=== PATIENT | female | born 1995 | race Caucasian/White ===

== ENCOUNTER → 2020-08-03 14:42 | Outpatient (BNVA) | payer SELFPAY | PROVIDERS: Visit Provider Emergency Medicine | DX: R73.9 Hyperglycemia, unspecified (principal); M54.9 Dorsalgia, unspecified | CPT/HCPCS: 80048; 80061; 81000; 83036; 84443; 85025 ==

== ENCOUNTER → 2020-11-29 11:49 | Outpatient (BNVA) | payer OTHER, SELFPAY | PROVIDERS: Visit Provider Nurse Practitioner Family | DX: J06.9 Acute upper respiratory infection, unspecified (principal); Z20.822 Contact with and (suspected) exposure to COVID-19 | CPT/HCPCS: 87635 ==

== ENCOUNTER 2024-06-14 21:14 | Inpatient (IN) | payer BC, SELFPAY ==
[2024-06-14 21:22] VITALS: BP 116/83; PULSE 116; RESP 18; TEMP 36.7; BMI 29.0
--- NOTE | 2024-06-14 21:36 | W.ED.PSYCHS ---
Documented by User: Renan Elena DO 06/15/24 05:30 HPI - Psych General: Chief Complaint: Psychiatric Symptoms Stated Complaint: MHE Time Seen by Provider: 06/14/24 21:17 History of Present Illness: Patient brought in by EMS. Patient was found on [address] with her belongings. Patient has rambling nontangential speech. Patient will answer questions with answers however they some appear to be not appropriate. Or informational. Patient does denies she has suicidal or homicidal ideation. Per review of the chart it does appear that she sees a Juany Friend but has not seen her since 03/17/2024. Patient does appear to have diabetes and gets her medicine through [facility] [place] Related Data Home Medications ?Medication ?Instructions ?Recorded ?Confirmed albuterol sulfate 90 mcg/actuation 2 puff inhalation PRN PRN asthma 06/15/24 06/15/24 aerosol inhaler (Ventolin HFA) Allergies Allergy/AdvReac Type Severity Reaction Status Date / Time tramadol AdvReac Intermediate Makes sick Verified 06/14/24 21:25 Review of Systems General: Reports: 10 or more systems reviewed and unremarkable except in HPI and below PFSH ED PFSH: Medical History Borderline hyperglycemia Social History Smoking and tobacco/nicotine status: current every day tobacco/nicotine user Substance/Drug Use: current Female Reproductive History: Spontaneous abortions: No Physical Exam Const: COMMON NORMALS: no acute distress, average body habitus, healthy appearing, alert and well nourished HENMT: COMMON NORMALS: normocephalic, atraumatic, hearing grossly normal bilaterally, external ears normal, Normal external nose present, moist oral mucous membranes and oropharynx normal HEAD & SCALP: normocephalic and atraumatic NOSE: Normal external nose present EXTERNAL EAR: Yes external ears normal Neck/C-Spine: COMMON NORMALS: full ROM, no lymphadenopathy, supple, no meningeal signs, no JVD and Thyroid normal THYROID: Thyroid normal Chest: COMMONS NORMALS: normal inspection of the chest and normal palpation of entire chest wall Resp: COMMON NORMALS: normal respiratory effort, No retractions, No use of accessory muscles and clear to auscultation bilaterally AUSCULTATION: clear to auscultation bilaterally Cardio: COMMON NORMALS: no JVD, regular rhythm, S1 normal heart sound present, S2 normal heart sound present, No gallops present (Cardio), No clicks present (Cardio), No murmurs present (Cardio) and No rub (Cardio); negative for regular rate (Mildly tachycardic) RATE: abnormal rate (Mildly tachycardic) RHYTHM: regular rhythm HEART SOUNDS: S1 normal heart sound present and S2 normal heart sound present GI: COMMON NORMALS: Normal to inspection, nondistended, normoactive bowel sounds present, Soft to palpation, non-tender, No hepatosplenomegaly present and no masses PALPATION: Yes Soft to palpation and Yes No hepatosplenomegaly present Neuro: SENSORIUM/ORIENTATION: Yes alert MENINGEAL SIGNS: Yes no meningeal signs Course Vital Signs: Vital signs: Vital Signs Temperature 98.2 F 06/15/24 12:22 Pulse Rate 108 H 06/15/24 12:22 Respiratory Rate 18 06/15/24 14:00 Blood Pressure 119/64 06/15/24 12:22 Pulse Oximetry 98 06/15/24 12:22 Oxygen Delivery Me thod Room Air 06/15/24 12:24 [facility] - Psych Lab Data 06/15/24 00:17 06/15/24 00:[address] 06/15/24 09:28 IMPRESSION: Negative head CT. Laboratory Results WBC 8.70 10^3/uL (3.29-11.43) 06/15/24 00:17 RBC 4.60 10^6/uL (3.85-5.65) 06/15/24 00:17 Hgb 13.00 g/dL (11.27-16.99) 06/15/24 00:17 Hct 39.9 % (36-47) 06/15/24 00:17 MCV 86.7 fl (85-98) 06/15/24 00:17 MCH 28.3 pg (27-33) 06/15/24 00:17 MCHC 32.6 g/dL (30-55) 06/15/24 00:17 RDW 13.6 % (12.1-15.1) 06/15/24 00:17 Plt Count 325 10^3/cmm (157-399) 06/15/24 00:17 MPV 10.0 fL (7.4-10.4) 06/15/24 00:17 Neut % (Auto) 72.2 % 06/15/24 00:17 Lymph % (Auto) 18.7 % 06/15/24 00:17 Bibb % (Auto) 6.2 % 06/15/24 00:17 Eos % (Auto) 2.3 % 06/15/24 00:17 Baso % (Auto) 0.5 % 06/15/24 00:17 Neut # (Auto) 6.28 10^3/uL (1.8-7.7) 06/15/24 00:17 Lymph # (Auto) 1.6 10^3/uL (0.8-4.8) 06/15/24 00:17 Bibb # (Auto) 0.5 10^3/uL (0.2-0.9) 06/15/24 00:17 Eos # (Auto) 0.2 10^3/uL (0.0-0.8) 06/15/24 00:17 Baso # (Auto) 0.0 10^3/uL (0.0-0.1) 06/15/24 00:17 Nucleated RBC % (auto) 0 % 06/15/24 00:17 Nucleated RBCs # 0.0 /100WBC 06/15/24 00:17 Sodium 141 mmol/L (136-145) 06/15/24 00:17 Potassium 3.5 mmol/L (3.5-5.1) 06/15/24 00:17 Chloride 104 mmol/L (98-107) 06/15/24 00:17 Carbon Dioxide 22 mmol/L (22-29) 06/15/24 00:17 Anion Gap 18.5 (5-19) 06/15/24 00:17 BUN 8 mg/dL (6-20) 06/15/24 00:17 Creatinine 0.7 mg/dL (0.5-0.9) 06/15/24 00:17 GFR Calculation 97.6 mL/min (90-130) 06/15/24 00:17 Glucose 114 mg/dL (65-115) 06/15/24 00:17 POC Glucose 94 mg/dL (70-110) 06/15/24 08:18 Calculated Osmolality 291 mOsm/kg (285-295) 06/15/24 00:17 Calcium 10.0 mg/dL (8.5-10.5) 06/15/24 00:17 Total Bilirubin 0.8 mg/dL (0.15-1.2) 06/15/24 00:17 AST 26 U/L (0-32) 06/15/24 00:17 ALT 26 U/L (0-33) 06/15/24 00:17 Alkaline Phosphatase 114 U/L (35-105) H 06/15/24 00:17 Total Protein 7.4 g/dL (6.6-8.7) 06/15/24 00:17 Albumin 4.2 g/dL (3.5-5.2) 06/15/24 00:17 Globulin 3.2 g/dL (1.3-4.6) 06/15/24 00:17 HCG, Qual Negative (Negative) 06/15/24 08:06 Urine Color Dark yellow (Yellow) A 06/15/24 08:06 Urine Appearance Cloudy (CLEAR) A 06/15/24 08:06 Urine pH 5.5 (5-7) 06/15/24 08:06 Ur Specific [place] 1.030 (1.005-1.030) 06/15/24 08:06 Urine Protein 1+ (Negative) A 06/15/24 08:06 Urine Glucose (UA) Negative (Normal) 06/15/24 08:06 Urine Ketones 1+ (Negative) H 06/15/24 08:06 Urine Blood 3+ (Negative) A 06/15/24 08:06 Urine Nitrate Negative (Negative) 06/15/24 08:06 Urine Bilirubin Negative (Negative) 06/15/24 08:06 Urine Urobilinogen 1.0 mg/dL (Negative) 06/15/24 08:06 Ur Leukocyte Esterase Negative (Negative) 06/15/24 08:06 Urine RBC 0-2 /hpf (0-2) 06/15/24 08:06 Urine WBC 11-20 /hpf (0-5) H 06/15/24 08:06 Ur Squamous Epith Cells 6-10 /hpf (0-5) 06/15/24 08:06 Amorphous Sediment Not Reportable 06/15/24 08:06 Urine Bacteria 2+ /hpf (NONE) H 06/15/24 08:06 Hyaline Casts 4.11 /lpf 02/18/25 08:06 Salicylates < 0.3 mg/dL (3-10) L 06/15/24 00:17 Urine Opiates Screen Negative ng/mL (Negative) 06/15/24 08:06 Acetaminophen < 5.0 ug/mL (10-30) L 06/15/24 00:17 Ur Barbiturates Screen Negative ng/mL (Negative) 06/15/24 08:06 Ur Phencyclidine Scrn Negative ng/mL (Negative) 06/15/24 08:06 Ur Amphetamines Screen Positive ng/mL (Negative) H 06/15/24 08:06 U Benzodiazepines Scrn Negative ng/mL (Negative) 06/15/24 08:06 Urine Cocaine Screen Negative ng/mL (Negative) 06/15/24 08:06 U Marijuana (THC) Screen Positive ng/mL (Negative) H 06/15/24 08:06 Ethyl Alcohol < 10 mg/dL (0-10) 06/15/24 00:17 Discharge Plan Discharge Patient Disposition: Admitted As Inpatient Admit Provider: Rashaun Pizano Clinical Impression: Acute psychosis, Amphetamine abuse Condition: Stable Coding Level of Care Code ED Industrial Mechanic for Chg Fwd Documented by User: Momo Camarena DO 06/15/24 17:23 HPI - Psych General: Chief Complaint: Psychiatric Symptoms Stated Complaint: MHE Time Seen by Provider: 06/14/24 21:17 Related Data Home Medications ?Medication ?Instructions ?Recorded ?Confirmed albuterol sulfate 90 mcg/actuation 2 puff inhalation PRN PRN asthma 06/15/24 06/15/24 aerosol inhaler (Ventolin HFA) Allergies Allergy/AdvReac Type Severity Reaction Status Date / Time tramadol AdvReac Intermediate Makes sick Verified 06/14/24 21:25 [facility] ED PFSH: Medical History Borderline hyperglycemia Social History Smoking and tobacco/nicotine status: current every day tobacco/nicotine user Substance/Drug Use: current Course Vital Signs: Vital signs: Vital Signs Temperature 98.2 F 06/15/24 12:22 Pulse Rate 108 H 06/15/24 12:22 Respiratory Rate 18 06/15/24 14:00 Blood Pressure 119/64 06/15/24 12:22 Pulse Oximetry 98 06/15/24 12:22 Oxygen Delivery Me thod Room Air 06/15/24 12:24 MDM - Psych Medical Decision Making Care assumed at change of shift monitored patient for a while she appeared to be under the influence which is confirmed by her urine drug screen however even after 13 hours she is still acutely psychotic. Placed patient on 96-hour hold discussed Dr. simmons orders written Lab Data 06/15/24 00:17 06/15/24 00:[address] 06/15/24 09:28 IMPRESSION: Negative head CT. Laboratory Results WBC 8.70 10^3/uL (3.29-11.43) 06/15/24 00:17 RBC 4.60 10^6/uL (3.85-5.65) 06/15/24 00:17 Hgb 13.00 g/dL (11.27-16.99) 06/15/24 00:17 Hct 39.9 % (36-47) 06/15/24 00:17 MCV 86.7 fl (85-98) 06/15/24 00:17 MCH 28.3 pg (27-33) 06/15/24 00:17 MCHC 32.6 g/dL (30-55) 06/15/24 00:17 RDW 13.6 % (12.1-15.1) 06/15/24 00:17 Plt Count 325 10^3/cmm (157-399) 06/15/24 00:17 MPV 10.0 fL (7.4-10.4) 06/15/24 00:17 Neut % (Auto) 72.2 % 06/15/24 00:17 Lymph % (Auto) 18.7 % 06/15/24 00:17 Bibb % (Auto) 6.2 % 06/15/24 00:17 Eos % (Auto) 2.3 % 06/15/24 00:17 Baso % (Auto) 0.5 % 06/15/24 00:17 Neut # (Auto) 6.28 10^3/uL (1.8-7.7) 06/15/24 00:17 Lymph # (Auto) 1.6 10^3/uL (0.8-4.8) 06/15/24 00:17 Bibb # (Auto) 0.5 10^3/uL (0.2-0.9) 06/15/24 00:17 Eos # (Auto) 0.2 10^3/uL (0.0-0.8) 06/15/24 00:17 Baso # (Auto) 0.0 10^3/uL (0.0-0.1) 06/15/24 00:17 Nucleated RBC % (auto) 0 % 06/15/24 00:17 Nucleated RBCs # 0.0 /100WBC 06/15/24 00:17 Sodium 141 mmol/L (136-145) 06/15/24 00:17 Potassium 3.5 mmol/L (3.5-5.1) 06/15/24 00:17 Chloride 104 mmol/L (98-107) 06/15/24 00:17 Carbon Dioxide 22 mmol/L (22-29) 06/15/24 00:17 Anion Gap 18.5 (5-19) 06/15/24 00:17 BUN 8 mg/dL (6-20) 06/15/24 00:17 Creatinine 0.7 mg/dL (0.5-0.9) 06/15/24 00:17 GFR Calculation 97.6 mL/min (90-130) 06/15/24 00:17 Glucose 114 mg/dL (65-115) 06/15/24 00:17 POC Glucose 94 mg/dL (70-110) 06/15/24 08:18 Calculated Osmolality 291 mOsm/kg (285-295) 06/15/24 00:17 Calcium 10.0 mg/dL (8.5-10.5) 06/15/24 00:17 Total Bilirubin 0.8 mg/dL (0.15-1.2) 06/15/24 00:17 AST 26 U/L (0-32) 06/15/24 00:17 ALT 26 U/L (0-33) 06/15/24 00:17 Alkaline Phosphatase 114 U/L (35-105) H 06/15/24 00:17 Total Protein 7.4 g/dL (6.6-8.7) 06/15/24 00:17 Albumin 4.2 g/dL (3.5-5.2) 06/15/24 00:17 Globulin 3.2 g/dL (1.3-4.6) 06/15/24 00:17 HCG, Qual Negative (Negative) 06/15/24 08:06 Urine Color Dark yellow (Yellow) A 06/15/24 08:06 Urine Appearance Cloudy (CLEAR) A 06/15/24 08:06 Urine pH 5.5 (5-7) 06/15/24 08:06 Ur Specific Lincoln 1.030 (1.005-1.030) 06/15/24 08:06 Urine Protein 1+ (Negative) A 06/15/24 08:06 Urine Glucose (UA) Negative (Normal) 06/15/24 08:06 Urine Ketones 1+ (Negative) H 06/15/24 08:06 Urine Blood 3+ (Negative) A 06/15/24 08:06 Urine Nitrate Negative (Negative) 06/15/24 08:06 Urine Bilirubin Negative (Negative) 06/15/24 08:06 Urine Urobilinogen 1.0 mg/dL (Negative) 06/15/24 08:06 Ur Leukocyte Esterase Negative (Negative) 06/15/24 08:06 Urine RBC 0-2 /hpf (0-2) 06/15/24 08:06 Urine WBC 11-20 /hpf (0-5) H 06/15/24 08:06 Ur Squamous Epith Cells 6-10 /hpf (0-5) 06/15/24 08:06 Amorphous Sediment Not Reportable 06/15/24 08:06 Urine Bacteria 2+ /hpf (NONE) H 06/15/24 08:06 Hyaline Casts 4.11 /lpf 06/15/24 08:06 Salicylates < 0.3 mg/dL (3-10) L 06/15/24 00:17 Urine Opiates Screen Negative ng/mL (Negative) 06/15/24 08:06 Acetaminophen < 5.0 ug/mL (10-30) L 06/15/24 00:17 Ur Barbiturates Screen Negative ng/mL (Negative) 06/15/24 08:06 Ur Phencyclidine Scrn Negative ng/mL (Negative) 06/15/24 08:06 Ur Amphetamines Screen Positive ng/mL (Negative) H 06/15/24 08:06 U Benzodiazepines Scrn Negative ng/mL (Negative) 06/15/24 08:06 Urine Cocaine Screen Negative ng/mL (Negative) 06/15/24 08:06 U Marijuana (THC) Screen Positive ng/mL (Negative) H 06/15/24 08:06 Ethyl Alcohol < 10 mg/dL (0-10) 06/15/24 00:17 All radiology interpretation(s) finalized by discharge Discharge Plan Discharge Patient Disposition: Admitted As Inpatient Admit Provider: Rashaun Pizano Clinical Impression: Acute psychosis, Amphetamine abuse Condition: Stable Coding Level of Care Code ED Industrial Mechanic for Kathrine Hernandez
--- NOTE | 2024-06-14 23:01 | PC.NURSE ---
attempted to call sister in chart 2 times, no answer
[2024-06-15 00:26] LABS: Basophils % 0.5 %; Eosinophils # 0.2 10^3/uL (0.0-0.8); Eosinophils % 2.3 %; Hematocrit 39.9 % (36-47); Lymphocytes # 1.6 10^3/uL (0.8-4.8); Lymphocytes % 18.7 %; Mean Corpuscular HGB Conc 32.6 g/dL (30-55); Mean Corpuscular Hemoglobin 28.3 pg (27-33); Mean Corpuscular Volume 86.7 fl (85-98); Monocytes # 0.5 10^3/uL (0.2-0.9); Monocytes % 6.2 %; Neutrophils # 6.28 10^3/uL (1.8-7.7); Neutrophils % 72.2 %; Nucleated Red Blood Cells % 0 %; Platelet Count 325 10^3/cmm (157-399); Red Cell Distribution Width 13.6 % (12.1-15.1)
[2024-06-15 00:48] LABS: Alanine Aminotransferase 26 U/L (0-33); Albumin Level 4.2 g/dL (3.5-5.2); Alkaline Phosphatase 114 U/L (35-105); Anion Gap 18.5 (5-19); Aspartate Amino Transferase 26 U/L (0-32); Blood Urea Nitrogen 8 mg/dL (6-20); Carbon Dioxide 22 mmol/L (22-29); Chloride 104 mmol/L (98-107); Globulin 3.2 g/dL (1.3-4.6); Glomerular Filtration Rate 97.6 mL/min (90-130); Glucose 114 mg/dL (65-115); Osmolality Calculated 291 mOsm/kg (285-295); Potassium 3.5 mmol/L (3.5-5.1); Sodium 141 mmol/L (136-145); Total Bilirubin 0.8 mg/dL (0.15-1.2); Total Protein 7.4 g/dL (6.6-8.7)
[2024-06-15 00:55] LABS: Acetaminophen < 5.0 ug/mL (10-30); Alcohol Level < 10 mg/dL (0-10); Salicylate < 0.3 mg/dL (3-10)
[2024-06-15 04:36] VITALS: BP 148/73; PULSE 90; RESP 18; O2SAT 98
--- NOTE | 2024-06-15 08:21 | PC.NURSE ---
PT AWAKE AT THIS TIME. PT WAS ABLE TO AMBULATE TO THE BATHROOM AND GIVE A URINE SAMPLE. THIS NURSE WENT INTO PT ROOM TO CHECK A BLOOD SUGAR. THIS NURSE ASKED PT IF SHE KNEW WHY SHE WAS AT THE HOSPITAL. PT STATED BECAUSE I'M A BAD BITCH. THIS NURSE EDUCATED PT ON THE PROCEDURE OF CHECKING BLOOD SUGAR. PT STATED OKAY. THIS IS WHERE MY LIVER TEST IS. NOW YOU ARE GOING TO CHECK. PT DID NOT COMPLETE SENTENCE. PT ASKED THIS NURSE DO YOU KNOW WHEN I COULD BE TAKEN TO THE HOSPITAL? THEY TOLD ME LAST NIGHT THIS WAS JUST A PLACE TO GO AND SIT. I NEED TO TELL THEM WHAT I NEED. THIS NURSE INFORMED PT THAT SHE WAS CURRENTLY IN THE ER AND THAT IF SHE HAD ANY QUESTIONS THIS NURSE WOULD BE THE ONE TAKING CARE OF HER. PT STATED I'M THE NURSE TAKING CARE OF ME. PT THEN PROCEEDED TO TAKE A BITE OUT OF PLASTIC TAG FROM THE GREEN PAPER SCRUBS. THIS NURSE ASKED PT TO NOT EAT THE PLASTIC TAG OUT OF THE SCRUBS. PT STATED I'M NOT EATING IT. PT THEN PROCEEDED TO HIDE PLASTIC TAG UNDER GREEN SCRUBS. PHYSICIAN NOTIFIED.
[2024-06-15 08:22] LABS: Glucose Point of Care 94 mg/dL (70-110)
[2024-06-15 08:48] LABS: Amphetamines Screen Urine Positive (Negative); Barbiturates Screen Urine Negative (Negative); Benzodiazepines Screen Urine Negative (Negative); Cocaine Screen Urine Negative (Negative); Opiate Screen Urine Negative (Negative); PCP Screen Urine Negative (Negative); THC Screen Urine Positive (Negative)
[2024-06-15 08:49] LABS: HCG Qualitative Urine. Negative (Negative)
--- NOTE | 2024-06-15 09:28 | CT_ITS ---
WS: [id number] CT HEAD NONCONTRAST HISTORY: Altered mental status TECHNIQUE: Contiguous axial imaging performed through the brain. Bone and soft tissue windows. Sagittal and coronal reformats reviewed. All CT scans at [facility] use at least one of these dose optimization techniques: automated exposure control; mA and/or kV adjustment per patient size (includes targeted exams where dose is matched to clinical indication); or iterative reconstruction. DLP: 2245.47 mGy.cm COMPARISON: None available. Motion artifact due to patient's inability to cooperate. No acute intracranial hemorrhage, midline shift or mass effect. No atrophy or prior infarcts or herniation. Ventricles: Normal size with no hydrocephalus. Paranasal sinuses: As visualized are clear. Mastoid air cells: Well pneumatized. Calvarium and scalp: Skull is intact with no soft tissue edema or swelling. CT/CT head wo con* [id number] IMPRESSION: Negative head CT.
[2024-06-15 09:29] LABS: Bilirubin Urine Negative (Negative); Blood Urine 3+ (Negative); Glucose Urine UA Negative (Normal); Ketones Urine 1+ (Negative); Leukocyte Esterase Urine Negative (Negative); Nitrate Urine Negative (Negative); Protein Urine 1+ (Negative); Urine Appearance Cloudy (CLEAR); Urine Color Dark Yellow (Yellow); pH Urine 5.5 (5-7)
[2024-06-15 09:33] LABS: Add Urine Microscopic? YES; Bacteria Urine 2+ /hpf; Hyaline Casts Urine 4.11 /lpf; RBC Urine 0-2 /hpf (0-2)
[2024-06-15 09:42] LABS: Add Urine Culture? Yes
--- NOTE | 2024-06-15 10:23 | PC.NURSE ---
PT RESTING IN BED QUIETLY AT THIS TIME WITH EVEN RESPIRATIONS. HEAD CT ORDERED. THIS NURSE AND CLAY PRESS OPERATOR EDUCATED PT ON THE NEED FOR THE ORDERED SCAN. PT STATED I DON'T NEED IT. THEY USUALLY DO IT IN THE ROOM. YOU DON'T EVEN KNOW WHY I AM HERE. DID YOU EVEN GET LAB WORK? THIS NURSE EDUCATED PT THAT LAB WORK WAS OBTAINED AND A URINE SAMPLE WAS OBTAINED AND THE HEAD CT BEING IMPORTANT TO MEDICALLY CLEAR PT TO GO HOME. PT STATES WHY DO YOU THINK I AM HERE? THIS NURSE EDUCATED PT ON THE PT BEING ALTERED LAST NIGHT. PT STATES WHEN DID THEY GET MY BLOOD? WHILE I WAS SLEEPING? THIS NURSE INFORMED PT THAT THE ANIMAL RIDE MANAGER STAFF OBTAINED BLOOD WORK SO THIS NURSE WAS UNAWARE OF PT MENTATION WHEN THE BLOOD WORK WAS OBTAINED. PT STILL REFUSING CT SCAN. PROVIDER NOTIFIED.
--- NOTE | 2024-06-15 10:47 | PC.NURSE ---
PT REQUESTED NEW SET OF GREEN SCRUBS, PAD, LOTION, HAIR BRUSH AND FRESH ICE WATER. ALL REQUESTED ITEMS GIVEN TO PT. PT DENIED ANY OTHER VERBALIZED NEEDS AT THIS TIME. PSA OUTSIDE ROOM.
[2024-06-15 11:18] VITALS: BP 121/83; PULSE 106; O2SAT 97
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
--- NOTE | 2024-06-15 12:07 | PC.NURSE ---
THIS NURSE WENT IN TO PT ROOM TO OBTAIN VITAL SIGNS PRIOR TO TRANSFER TO NPU. THE BLOOD PRESSURE CUFF STARTED TO PUMP UP, PT STATES IF THIS THING MAKES ME FAT, ITS ON YOU. THIS NURSE EDUCATED PT ON HOW THE BLOOD PRESSURE CUFF WILL PUMP UP AND WILL LET AIR OUT. PT STATES WELL, IT IS MAKING MY ARM FAT. THIS NURSE VERBALIZED UNDERSTANDING AND REASSURED PT THAT IT WOULD SLOWLY LET AIR OUT. PT THEN TURNED TO THE CORNER OF THE ROOM AND MUMBLED WORDS THAT THIS NURSE WAS UNABLE TO COMPREHEND. PT APPEARED TO BE SPEAKING TO SOMETHING THAT WAS NOT THERE. VITALS WERE OBTAINED. PT WAS TRANSFERRED TO INPATIENT NPU WITH AND EMILY STINSON AT BEDSIDE.
[2024-06-15 12:14] VITALS: BP 131/73; PULSE 84; O2SAT 98
[2024-06-15 12:22] VITALS: BP 119/64; PULSE 108; RESP 18; TEMP 36.8; O2SAT 98
[2024-06-15 14:00] VITALS: RESP 18
--- NOTE | 2024-06-15 15:12 | PC.NURSE ---
Pt refused vital signs. RR 18
[2024-06-15] MEDS: hyDROXYzine 25 mg Capsule 50 MG PO (16:36)
[2024-06-15 20:04] VITALS: BP 93/55; PULSE 86; RESP 16; O2SAT 97
[2024-06-16 06:00] VITALS: BP 117/76; PULSE 89; RESP 16; TEMP 37.1; O2SAT 97
[2024-06-16] MEDS: nicotine 4 mg lozenge MUCOUS MEM (09:19)
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
[2024-06-16 14:00] VITALS: BP 121/67; PULSE 94; RESP 18; TEMP 36.7; O2SAT 92
[2024-06-16 20:07] VITALS: BP 103/55; PULSE 87; RESP 16; TEMP 37; O2SAT 98
[2024-06-17 06:00] VITALS: BP 121/68; PULSE 97; RESP 16; TEMP 37; O2SAT 99
[2024-06-17] MEDS: penicillin v potassium 250 mg Tablet 500 MG PO ×3 (10:43→19:41)
[2024-06-17] MEDS: paliperidone ER 3 mg Tablet PO (10:44)
--- NOTE | 2024-06-17 13:01 | W.PM.NPUPNS ---
Subjective NPU Subjective: 29-year-old white female admitted with acute psychosis positive for amphetamine use. Patient continued to appear lethargic. She had periods of increased irritability but did not require any as needed medications. She had continued to appear confused about her whereabouts but stated that she wanted to go home. The patient had reported that she had felt that others around her were spying on her and trying to keep her here in the hospital. The patient had appeared to require some significant prompting for completion of activities of daily living and did not brush her teeth or shower. She had remained confused and was unable to again provide any clear history regarding how she had come to be here. Mental Status Exam MSE Comments: Patient is a overweight white female who appeared older than her stated age with poor dentition and fleeting eye contact who appeared somewhat guarded on interview. She was a poor historian. She was alert and oriented to person only unable to provide her current whereabouts or time. Her speech was normal in volume, diminished in rate and decreased in spontaneity. Her hygiene was poor. There was no evidence of any abnormal involuntary motor movements, tics, or tremors appreciated. Her thought process was nonlinear and rambling. Her thought content showed no evidence of homicidal or suicidal ideation. There were significant bizarre thoughts noted there was clear evidence of delusions and active ideas of reference. She did appear to be responding to internal stimul. Her mood was described as fine. Her affect appeared odd and subdued. Her insight is impaired. Her judgment is poor. Her impulse control appeared poor. Her recent memory appeared limited at this time. Her remote memory appeared impaired as well on testing. Vitals/I&O/Wt Last Vital Signs Temp 98.6 F 06/17/24 06:00 Pulse 97 06/17/24 06:00 Resp 16 06/17/24 06:00 BP 121/68 06/17/24 06:00 Pulse Ox 99 06/17/24 06:00 O2 Del Method Room Air 06/17/24 06:00 Data NPU 06/15/24 00:17 06/15/24 00:17 Micro: Microbiology 06/15/24 08:06 Urine Culture - Final Urine,Clean Catch Strep agalactiae - (group b) Microbiology 06/15/24 08:06 Urine,Clean Catch Urine Culture - Final Strep agalactiae - (group b) A&P Assessment and plan (1) Acute psychosis: (2) Post-traumatic stress disorder, chronic: (3) Amphetamine abuse: Plan 29-year-old female with a past history of complex PTSD admitted involuntarily with disorganized thinking and behavior with active psychosis currently currently remaining confused but agreeable to considering medications at this time. #1.? Engage patient in individual milieu and group therapy. #2?? Recommend sober living treatment at the highest level of care to which the patient is willing to commit #3??? CIWA for alcohol withdrawal #4?? TO-15 minute checks? #5?? Will attempt to gather collateral information, increase invega to 6mg daily. Patient likely needs continued stay here. PDMP PDMP Reviewed: Not Reviewed Attestations NPU Medical Necessity Statement*: Inpatient hospitalization is medically necessary and deemed to ?be ?the clinically appropriate intervention ?at this time.? We will monitor/initiate medications and make changes as indicated.? The patient?s likely length of stay 5-7 days. Coding Level of Care Code Acute Code for [facility] Fwd Diagnoses Acute psychosis F23 Post-traumatic stress disorder, chronic F43.12 Amphetamine abuse F15.10
[2024-06-17 14:00] VITALS: BP 107/78; PULSE 97; RESP 18; TEMP 37.1; O2SAT 100
[2024-06-17 19:41] VITALS: BP 107/61; PULSE 89; RESP 16; TEMP 37; O2SAT 98
[2024-06-17] MEDS: nicotine 4 mg lozenge MUCOUS MEM (19:41)
[2024-06-17] MEDS: trazodone 50 mg Tablet PO (19:42)
[2024-06-17] MEDS: hyDROXYzine 25 mg Capsule 50 MG PO (19:42)
--- NOTE | 2024-06-17 22:06 | PC.NURSE ---
AT NURSES STATION, IS UPSET DUE TO HAVING TO FOOD AND BEVERAGE SERVICE MANAGER THIS FUCKING LINE, I'M GOING BACK TO BED. PT WAS EDUCATED AND REDIRECTED THAT SHE NEEDED TO STAY SO SHE COULD TAKE HER ANTIBIOTIC AND MEDICATIONS FOR ANXIETY AND SLEEP THAT SHE REQUESTED. PT CONTINUED TO YOEL IRRITABLE BUT DID WAIT. DENIES SI/HI AND AVH AT THIS TIME. RATES ANXIETY 5/10 AND DEPRESSION 2/10. PT IS OBSERVED ISOLATING AND WITHDRAWN TO ROOM. VISTARIL 50 MG WAS GIVEN ORDERED FOR ANXIETY AND TRAZODONE 50 MG FOR SLEEP. SUPPORT VOICED.
[2024-06-18] MEDS: penicillin v potassium 250 mg Tablet 500 MG PO ×4 (03:15→19:59)
--- NOTE | 2024-06-18 04:03 | PC.NURSE ---
PT WAS GIVEN VISTARIL 50 MG FOR REPORTS OF INCREASED ANXIETY AND TRAZODONE 50 MG FOR SLEEP. MEDICATIONS DEEMED EFFECTIVE. PT HAS BEEN RESTING IN BED SINCE APPROXIMATELY 1999 LAST NIGHT.
[2024-06-18 06:00] VITALS: BP 109/63; PULSE 84; RESP 17; TEMP 36.6; O2SAT 98
[2024-06-18] MEDS: paliperidone ER 6 mg Tablet PO (09:56)
[2024-06-18 14:00] VITALS: BP 113/73; PULSE 103; RESP 18; TEMP 37; O2SAT 98
[2024-06-18] MEDS: nicotine 4 mg lozenge MUCOUS MEM ×2 (16:51→20:00)
[2024-06-18 19:00] LABS: Glucose Point of Care 134 mg/dL (70-110)
--- NOTE | 2024-06-18 19:26 | P.NPUPN_ITS ---
Subjective NPU 2 Subjective: Patient presented today reporting that she is doing okay. She seemed to be confused about most things but did identify that she is on a 96-hour hold and felt that her time should be up relatively soon. We discussed with the weekends not being counted that her hold was technically up on Friday however our plan about discharge centered on her being well enough and that her psychosis will have resolved. She reported that she needed to get home but then made some strange comment about staying in the back of her vehicle. We discussed the importance of her being well enough to take care of any children that she might have responsibility for. We discussed her clear psychotic presentation remaining. We discussed that if the medication was not effective in resolving her psychosis that there was a reasonable chance that she would not be discharged on Friday at the end of the hold and that a 21-day hold extension was filed. She denied any side effects to the medication. Mental Status Exam 2 MSE Comments: This is an overweight versus obese white female in hospital scrubs who appeared older than her stated age with poor dentition and fleeting eye contact. No abnormal movements except for psychomotor agitation. Somewhat cooperative with exam and mild to moderate distress. Speech was decreased rate but mostly normal volume. Mood described as okay, affect subdued and odd. Her thought process was nonlinear and rambling she continued to make odd references and say things that made no sense. Her thought content showed no evidence of homicidal or suicidal ideation. There were significant bizarre thoughts noted there was clear evidence of delusions and active ideas of reference. She did appear to be responding to internal stimuli. Attention and concentration was impaired and memory was unreliable but no more formally tested. Insight, judgment and impulse control were all impaired her recent memory appeared limited at this time. Vitals/I&O/Wt Last Vital Signs Temp 98.6 F 06/18/24 14:00 Pulse 103 H 06/18/24 14:00 Resp 18 06/18/24 14:00 BP 113/73 06/18/24 14:00 Pulse Ox 98 06/18/24 14:00 O2 Del Method Room Air 06/18/24 06:00 Data NPU 06/15/24 00:17 06/15/24 00:17 A&P Assessment and plan (1) Acute psychosis: (2) Post-traumatic stress disorder, chronic: (3) Amphetamine abuse: Plan 29-year-old female with a past history of complex PTSD admitted involuntarily with disorganized thinking and behavior with active psychosis currently currently remaining confused but agreeable to considering medications at this time. 1.? Engage patient in individual milieu and group therapy. 2.? Recommend sober living treatment at the highest level of care to which the patient is willing to commit 3.??CIWA for alcohol withdrawal 4. TO-15 minute checks? 5. Will attempt to gather collateral information, increases invega to 6mg daily. 6. 21-day hold paperwork filed PDMP PDMP Reviewed: Not Reviewed Attestations NPU 2 Medical Necessity Statement*: Inpatient hospitalization is medically necessary and the clinically appropriate intervention ?at this time.? We will monitor/initiate medications and make changes as indicated.? The patient?s likely length of stay 5-7 days. Coding Level of Care Code Acute Code for Chg Fwd Diagnoses Acute psychosis F23 Post-traumatic stress disorder, chronic F43.12 Amphetamine abuse F15.10
[2024-06-18] MEDS: acetaminophen 325 mg Tablet 650 MG PO (19:59)
[2024-06-18 20:02] VITALS: BP 108/67; PULSE 91; RESP 16; TEMP 36.6; O2SAT 99
[2024-06-19] MEDS: penicillin v potassium 250 mg Tablet 500 MG PO ×4 (03:22→21:00)
[2024-06-19 06:00] VITALS: BP 101/58; PULSE 94; RESP 16; O2SAT 98
[2024-06-19] MEDS: paliperidone ER 6 mg Tablet PO (09:10)
[2024-06-19] MEDS: nicotine 4 mg lozenge MUCOUS MEM (09:10)
[2024-06-19] MEDS: hyDROXYzine 25 mg Capsule 50 MG PO (09:10)
--- NOTE | 2024-06-19 09:16 | PC.NURSE ---
DENIES PAIN. DENIES SI/HI AND AVH AT THIS TIME. EVASIVE WITH ASSESSMENT. AFFECT IS FLAT AND GUARDED WITH STAFF. RATES ANXIETY 5/10, VISTARIL 50 MG GIVEN ORDERED FOR ANXIEY. RATES DEPRESSION 0/10. ISOLATES AND WITHDRAWN TO ROOM. WHEN WAITING AT THE NURSES STATION FOR MEDICATIONS PT COMES TO THE WINDOW BEHIND OTHER PTS AND STARTS COUNTING 1,2,3,4, THEN PLOPS BODY INTO THE FLOOR AGAINST THE WALL IN A SITTING POSITION. PT THEN DARTS UP AND COMES AND TAKES MEDICATION. SUPPORT VOICED.
--- NOTE | 2024-06-19 09:47 | P.NPUPN_ITS ---
Subjective NPU 2 Subjective: Patient presented today reporting that her significant other was ready to pick her up. She continued to have odd and bizarre thought processes per staff reports and direct observation. We discussed the fact that we have filed for 21-day hold and the possibility of discharge at the end of her hold on Friday was hinging upon whether she shows continued improvement on the Invega. She reports that the Invega does make her tired and we discussed the possibility of switching it to bedtime. She denied any other side effects to the medication. Mental Status Exam 2 MSE Comments: This is an overweight versus obese white female in hospital scrubs who appeared older than her stated age with poor dentition and fleeting eye contact. No abnormal movements except for psychomotor agitation. Somewhat cooperative with exam and mild to moderate distress. Speech was decreased rate but mostly normal volume. Mood described as okay, affect subdued and odd. Her thought process was nonlinear and rambling she continued to make odd references and say things that made no sense. Her thought content showed no evidence of homicidal or suicidal ideation. There were significant bizarre thoughts noted there was clear evidence of delusions and active ideas of reference. She did appear to be responding to internal stimuli. Attention and concentration was impaired and memory was unreliable but no more formally tested. Insight, judgment and impulse control were all impaired her recent memory appeared limited at this time. Vitals/I&O/Wt Last Vital Signs Temp 97.9 F 06/18/24 20:02 Pulse 94 06/19/24 06:00 Resp 16 06/19/24 06:00 BP 101/58 06/19/24 06:00 Pulse Ox 98 06/19/24 06:00 O2 Del Method Room Air 06/18/24 06:00 Data NPU 06/15/24 00:17 06/15/24 00:17 A&P Assessment and plan (1) Acute psychosis: (2) Post-traumatic stress disorder, chronic: (3) Amphetamine abuse: Plan 29-year-old female with a past history of complex PTSD admitted involuntarily with disorganized thinking and behavior with active psychosis currently currently remaining confused but agreeable to considering medications at this time. 1.? Engage patient in individual milieu and group therapy. 2.? Recommend sober living treatment at the highest level of care to which the patient is willing to commit 3.??CIWA for alcohol withdrawal 4. TO-15 minute checks? 5. Will attempt to gather collateral information, increases invega to 6mg daily. 6. 21-day hold paperwork filed PDMP PDMP Reviewed: Not Reviewed Attestations NPU 2 Medical Necessity Statement*: Inpatient hospitalization is medically necessary and the clinically appropriate intervention ?at this time.? We will monitor/initiate medications and make changes as indicated.? The patient?s likely length of stay 4-6 days. Coding Level of Care Code Acute Code for Chg Fwd Diagnoses Acute psychosis F23 Post-traumatic stress disorder, chronic F43.12 Amphetamine abuse F15.10
[2024-06-19 14:00] VITALS: BP 119/70; PULSE 112; RESP 17; TEMP 36.8; O2SAT 98
[2024-06-19 20:46] VITALS: BP 104/61; PULSE 106; RESP 16; TEMP 36.8; O2SAT 97
[2024-06-20] MEDS: penicillin v potassium 250 mg Tablet 500 MG PO (01:52)
[2024-06-20 06:00] VITALS: BP 109/64; PULSE 90; RESP 16; O2SAT 98
[2024-06-20] MEDS: paliperidone ER 6 mg Tablet PO (09:01)
--- NOTE | 2024-06-20 11:28 | P.NPUPN_ITS ---
Subjective NPU 2 Subjective: Patient presented today reporting that she is doing okay. She once again talked about discharging but was being bizarre in her communication per staff reports and direct observation reporting that part of the reason why she is here is because she has a UTI that twice she has the symptoms that she has as well as the fact that she is having the mental health problems she is having because she does not have her glasses. She reported that if she had her glasses she would obviously be doing better. We tried to discuss how vision and symptoms of psychosis have anything to do with 1 another but she was resistant to considering that she has some psychosis going on. We discussed the fact that we filed for 21-day hold and we will identify tomorrow whether we will discharge her or await the hearing. She reports that she is sleepy from the Invega but we agreed to move with the bedtime which she was okay with. Mental Status Exam 2 MSE Comments: This is an overweight versus obese white female in hospital scrubs who appeared older than her stated age with poor dentition and fleeting eye contact. No abnormal movements except for psychomotor agitation. Somewhat cooperative with exam and mild to moderate distress. Speech was decreased rate but mostly normal volume. Mood described as okay, affect subdued and odd. Her thought process was nonlinear and rambling she continued to make odd references and say things that made no sense. Her thought content showed no evidence of homicidal or suicidal ideation. There were significant bizarre thoughts noted there was clear evidence of delusions and active ideas of reference. She did appear to be responding to internal stimuli. Attention and concentration was impaired and memory was unreliable but no more formally tested. Insight, judgment and impulse control were all impaired her recent memory appeared limited at this time. Vitals/I&O/Wt Last Vital Signs Temp 98.3 F 06/19/24 20:46 Pulse 90 06/20/24 06:00 Resp 16 06/20/24 06:00 BP 109/64 06/20/24 06:00 Pulse Ox 98 06/20/24 06:00 O2 Del Method Room Air 06/18/24 06:00 Weight last 48 hrs Weight 82.055 kg Data NPU 06/15/24 00:17 06/15/24 00:17 A&P Assessment and plan (1) Acute psychosis: (2) Post-traumatic stress disorder, chronic: (3) Amphetamine abuse: Plan 29-year-old female with a past history of complex PTSD admitted involuntarily with disorganized thinking and behavior with active psychosis currently currently remaining confused but agreeable to considering medications at this time. 1.? Engage patient in individual milieu and group therapy. 2.? Recommend sober living treatment at the highest level of care to which the patient is willing to commit 3.??CIWA for alcohol withdrawal 4. TO-15 minute checks? 5. Will attempt to gather collateral information, increased invega to 6mg daily. Switch Invega to nightly. 6. 21-day hold paperwork filed PDMP PDMP Reviewed: Not Reviewed Attestations NPU 2 Medical Necessity Statement*: Inpatient hospitalization is medically necessary and the clinically appropriate intervention ?at this time.? We will monitor/initiate medications and make changes as indicated.? The patient?s likely length of stay 4-6 days. Coding Level of Care Code Acute Code for [facility] Fwd Diagnoses Acute psychosis F23 Post-traumatic stress disorder, chronic F43.12 Amphetamine abuse F15.10
[2024-06-20] MEDS: nicotine 4 mg lozenge MUCOUS MEM ×3 (12:11→21:02)
[2024-06-20] MEDS: acetaminophen 325 mg Tablet 650 MG PO (12:31)
[2024-06-20] MEDS: docusate sodium 100 mg Capsule PO (13:57)
[2024-06-20 14:00] VITALS: BP 120/75; PULSE 107; RESP 17; TEMP 36.6; O2SAT 99
--- NOTE | 2024-06-20 16:38 | PC.NURSE ---
Dr. Delgado agreed to allow patient to continue Victoza, 0.6mg SQ daily. The order is originally 1.2mL but because it has been longer than three days since her last use, she should start back at 0.6mL to avoid GI upset. Wale, pharmacist, recommends that she restart this medication in the AM.
[2024-06-20] MEDS: trazodone 50 mg Tablet PO (21:02)
[2024-06-20] MEDS: hyDROXYzine 25 mg Capsule 50 MG PO (21:02)
[2024-06-20 21:27] VITALS: BP 106/65; PULSE 100; RESP 18; TEMP 36.6; O2SAT 97
[2024-06-21 06:00] VITALS: BP 92/68; PULSE 93; RESP 16; O2SAT 98
--- NOTE | 2024-06-21 08:12 | PC.NURSE ---
VICTOZA SUB Q NOT GIVEN DUE TO NOT HAVING THE SUPPLIES AVAILABLE TO USE THE INSULIN PEN. CALLED PHARMACY, [facility] AND CONTACTED SOCIAL SECURITY SPECIALIST TO SEE IF THE PEN NEEDLES WERE AVAILABLE ANYWHERE IN HOUSE. PHARMACY STATES WE DO NOT USE THOSE INSULIN PENS SO WE DON'T HAVE THE SUPPLIES. PT DOES NOT HAVE PEN NEEDLES AVAILABLE IN HER BELONGINGS. MEDICATION NOT GIVEN.
[2024-06-21] MEDS: docusate sodium 100 mg Capsule PO (08:23)
[2024-06-21 08:34] LABS: Glucose Point of Care 124 mg/dL (70-110)
--- NOTE | 2024-06-21 09:17 | PC.NURSE ---
CONTINUES TO ISOLATE AND WITHDRAW TO ROOM. STATES I'M GOING HOME TODAY SO STOP TELLING MY FAMILY I'M NOT. PT WAS INFORMED I HAVE NOT SPOKEN TO HER FAMILY AND THIS RN IS UNAWARE OF ANYONE DISCHARGING TODAY. DENIES PAIN. DENIES SI/HI AND AVH AT THIS TIME. FLAT AFFECT IS NOTED. SUPPORT VOICED.
--- NOTE | 2024-06-21 12:43 | P.NPUPN_ITS ---
Subjective NPU 2 Subjective: Patient presented today reporting that she is wanting to go home and that was her focus. We discussed her explaining why she thinks she is well enough to go home and she continued to be lacking in insight into her situation. This ad copy writer had to bring up the fact that she had been using methamphetamines. She was expressing the fact that she needed to go home and be a dependable parent to her children and we discussed the fact that she could not have been a dependable parent to her kids in the condition that she presented in. We discussed the importance of her having some clear sober living treatment and avoiding the behaviors that would put her kids at risk through her use. She denied any side effects to the medication though she will get her first dose of the Invega at bedtime today. Her last dose was yesterday morning. Mental Status Exam 2 MSE Comments: This is an overweight versus obese white female in hospital scrubs who appeared older than her stated age with poor dentition and fleeting eye contact. No abnormal movements except for psychomotor agitation. Somewhat cooperative with exam and mild to moderate distress. Speech was decreased rate but mostly normal volume. Mood described as okay, affect subdued and odd. Her thought process was nonlinear and rambling she continued to make odd references and say things that made no sense. Her thought content showed no evidence of homicidal or suicidal ideation. There were significant bizarre thoughts noted there was clear evidence of delusions and active ideas of reference. She did appear to be responding to internal stimuli. Attention and concentration was impaired and memory was unreliable but no more formally tested. Insight, judgment and impulse control were all impaired her recent memory appeared limited at this time. Vitals/I&O/Wt Last Vital Signs Temp 97.8 F 06/20/24 21:27 Pulse 93 06/21/24 06:00 Resp 16 06/21/24 06:00 BP 92/68 06/21/24 06:00 Pulse Ox 98 06/21/24 06:00 O2 Del Method Room Air 06/21/24 06:00 Weight last 48 hrs Weight 82.055 kg Data NPU 06/15/24 00:17 06/15/24 00:17 A&P Assessment and plan (1) Acute psychosis: (2) Post-traumatic stress disorder, chronic: (3) Amphetamine abuse: Plan 29-year-old female with a past history of complex PTSD admitted involuntarily with disorganized thinking and behavior with active psychosis currently currently remaining confused but agreeable to considering medications at this time. 1.? Engage patient in individual milieu and group therapy. 2.? Recommend sober living treatment at the highest level of care to which the patient is willing to commit 3.??CIWA for alcohol withdrawal 4. TO-15 minute checks? 5. Will attempt to gather collateral information, increased invega to 6mg daily. Switch Invega to nightly. 6. 21-day hold paperwork filed. 21-day hearing tomorrow. PDMP PDMP Reviewed: Not Reviewed Attestations NPU 2 Medical Necessity Statement*: Inpatient hospitalization is medically necessary and the clinically appropriate intervention ?at this time.? We will monitor/initiate medications and make changes as indicated.? The patient?s likely length of stay 4-6 days. Coding Level of Care Code Acute Code for [facility] Fwd Diagnoses Acute psychosis F23 Post-traumatic stress disorder, chronic F43.12 Amphetamine abuse F15.10
[2024-06-21 14:00] VITALS: BP 111/68; PULSE 118; RESP 17; TEMP 36.7; O2SAT 98
[2024-06-21] MEDS: nicotine 4 mg lozenge MUCOUS MEM ×4 (14:10→20:41)
--- NOTE | 2024-06-21 15:57 | PC.NURSE ---
PT REPORTED THAT THE TRAZODONE SHE WAS GIVEN LAST NIGHT MADE HER STAY AWAKE AND HAVE RAPID THOUGHTS ALL NIGHT. PT STATES SHE DOES NOT WANT TO TAKE IT ANYMORE. MEDICATION WAS REMOVED PER DR. TONEY ORDERS.
[2024-06-21 20:35] VITALS: BP 120/70; PULSE 97; RESP 18; TEMP 36.6; O2SAT 98
[2024-06-21] MEDS: hyDROXYzine 25 mg Capsule 50 MG PO (20:40)
[2024-06-21] MEDS: paliperidone ER 6 mg Tablet PO (20:41)
[2024-06-22 06:00] VITALS: BP 106/66; PULSE 104; RESP 18; TEMP 37; O2SAT 98
[2024-06-22 07:46] LABS: Glucose Point of Care 117 mg/dL (70-110)
[2024-06-22] MEDS: docusate sodium 100 mg Capsule PO (07:59)
[2024-06-22] MEDS: nicotine 4 mg lozenge MUCOUS MEM ×4 (08:08→20:32)
[2024-06-22] MEDS: NON-FORMULARY MEDICATION 0.6 EACH SUBCONJ (10:56)
--- NOTE | 2024-06-22 13:29 | PC.NURSE ---
Pt. is out of the facility at 13:[address] escorted by [facility] deputy.
[2024-06-22 14:00] VITALS: BP 122/81; PULSE 91; RESP 17; TEMP 36.7; O2SAT 99
--- NOTE | 2024-06-22 17:13 | P.NPUPN_ITS ---
Subjective NPU 2 Subjective: Patient presented today reporting that she is feeling okay. She went to the 21- day hold hearing and her cognition improvement was notable per staff reports and direct observation. She continued to have a focus on her children and we continue to try to discuss the importance of her focusing on her recovery and away that would be meaningful. She acknowledged that the medication was helping and we discussed the likelihood of initiating the Invega Sustenna after discussion of the risks, benefits and alternatives she understood and agreed to proceed as is documented in this note. Mental Status Exam 2 MSE Comments: This is an overweight versus obese white female in hospital scrubs who appeared older than her stated age with poor dentition and improving eye contact. No abnormal movements except for mild psychomotor retardation. Somewhat cooperative with exam in mild distress. Speech was decreased rate but mostly normal volume. Mood described as okay, affect less subdued or odd. Her thought process was more organized. Her thought content showed no evidence of homicidal or suicidal ideation. There were near resolution of bizarre thoughts noted as well as evidence that delusions and active ideas of reference are resolving. She did not appear to be responding to internal stimuli. Attention and concentration were intact and memory was more reliable but no more formally tested. Insight and judgment were improving and impulse control appeared to be limited but improving. Vitals/I&O/Wt Last Vital Signs Temp 98.0 F 06/22/24 14:00 Pulse 91 06/22/24 14:00 Resp 17 06/22/24 14:00 BP 122/81 06/22/24 14:00 Pulse Ox 99 06/22/24 14:00 O2 Del Method Room Air 06/22/24 06:00 Data NPU 06/15/24 00:17 06/15/24 00:17 A&P Assessment and plan (1) Acute psychosis: (2) Post-traumatic stress disorder, chronic: (3) Amphetamine abuse: Plan 29-year-old female with a past history of complex PTSD admitted involuntarily with disorganized thinking and behavior with active psychosis currently currently remaining confused but agreeable to considering medications at this time. 1.? Engage patient in individual milieu and group therapy. 2.? Recommend sober living treatment at the highest level of care to which the patient is willing to commit 3.??CIWA for alcohol withdrawal 4. TO-15 minute checks? 5. Will attempt to gather collateral information, increased invega to 6mg daily. Switch Invega to nightly. Consider switching to Invega Sustenna if it appears insurance will cover tomorrow. 6. 21-day hold paperwork filed. 21-day hold granted 06/22/2024 PDMP PDMP Reviewed: Not Reviewed Attestations NPU 2 Medical Necessity Statement*: Inpatient hospitalization is medically necessary and the clinically appropriate intervention ?at this time.? We will monitor/initiate medications and make changes as indicated.? The patient?s likely length of stay 3-5 days. Coding Level of Care Code Acute Code for [facility] Fwd Diagnoses Acute psychosis F23 Post-traumatic stress disorder, chronic F43.12 Amphetamine abuse F15.10
[2024-06-22] MEDS: sennosides-docusate Tablet 1 TAB PO (17:44)
[2024-06-22 20:07] VITALS: BP 114/70; PULSE 97; RESP 16; TEMP 36.7; O2SAT 99
[2024-06-22] MEDS: hyDROXYzine 25 mg Capsule 50 MG PO (20:32)
[2024-06-22] MEDS: paliperidone ER 6 mg Tablet PO (20:32)
[2024-06-22] MEDS: acetaminophen 325 mg Tablet 650 MG PO (20:39)
[2024-06-23 06:00] VITALS: BP 111/74; PULSE 86; RESP 16; TEMP 36.6; O2SAT 97
[2024-06-23] MEDS: nicotine 4 mg lozenge MUCOUS MEM ×5 (06:57→19:51)
[2024-06-23 07:41] LABS: Glucose Point of Care 157 mg/dL (70-110)
[2024-06-23] MEDS: docusate sodium 100 mg Capsule PO (08:23)
[2024-06-23] MEDS: NON-FORMULARY MEDICATION 0.6 EACH SUBCONJ (08:32)
[2024-06-23] MEDS: acetaminophen 325 mg Tablet 650 MG PO (09:22)
[2024-06-23 09:56] LABS: Glucose Point of Care 124 mg/dL (70-110)
[2024-06-23 14:00] VITALS: BP 117/73; PULSE 95; RESP 16; TEMP 36.7; O2SAT 100
--- NOTE | 2024-06-23 14:20 | P.NPUPN_ITS ---
Subjective NPU 2 Subjective: Patient presented today reporting that things are going fine. She reported that she has embraced radical acceptance of her stay here and a willingness to stay here until this card writer hand thinks she is ready to go but then within moments lobbied for discharge by Friday. We continue to discussed the importance of her being stable on her medication as well as exploring whether she can get the long- acting injectable. She identified that she wants to be in a better state of mind to be there for her children as well as to function better. We discussed the critical need for sobriety to be first and for her to be focused on that primarily and trust that the other things will be at a positive place if she does keep her drug use under control. She denied any side effects to the medication. Mental Status Exam 2 MSE Comments: This is an overweight versus obese white female in hospital scrubs who appeared older than her stated age with poor dentition and improving eye contact. No abnormal movements except for mild psychomotor retardation. Somewhat cooperative with exam in mild distress. Speech was decreased rate but mostly normal volume. Mood described as okay, affect brighter. Her thought process was more organized. Her thought content showed no evidence of homicidal or suicidal ideation. There was near resolution of any bizarre thoughts noted as well as evidence that delusions and active ideas of reference are resolving. She did not appear to be responding to internal stimuli. Attention and concentration were intact and memory was more reliable but no more formally tested. Insight and judgment were improving and impulse control appeared to be limited but improving. Vitals/I&O/Wt Last Vital Signs Temp 97.9 F 06/23/24 06:00 Pulse 86 06/23/24 06:00 Resp 16 06/23/24 06:00 BP 111/74 06/23/24 06:00 Pulse Ox 97 06/23/24 06:00 O2 Del Method Room Air 06/23/24 06:00 Data NPU 06/15/24 00:17 06/15/24 00:17 A&P Assessment and plan (1) Acute psychosis: (2) Post-traumatic stress disorder, chronic: (3) Amphetamine abuse: Plan 29-year-old female with a past history of complex PTSD admitted involuntarily with disorganized thinking and behavior with active psychosis currently currently remaining confused but agreeable to considering medications at this time. 1.? Engage patient in individual milieu and group therapy. 2.? Recommend sober living treatment at the highest level of care to which the patient is willing to commit 3.??CIWA for alcohol withdrawal 4. TO-15 minute checks? 5. Will attempt to gather collateral information, increased invega to 6mg daily. Switch Invega to nightly. Consider switching to Invega Sustenna if it appears insurance will cover tomorrow. 6. 21-day hold paperwork filed. 21-day hold granted 06/22/2024 PDMP PDMP Reviewed: Not Reviewed Attestations NPU 2 Medical Necessity Statement*: Inpatient hospitalization is medically necessary and the clinically appropriate intervention ?at this time.? We will monitor/initiate medications and make changes as indicated.? The patient?s likely length of stay 3-5 days. Coding Level of Care Code Acute Code for [facility] Fwd Diagnoses Acute psychosis F23 Post-traumatic stress disorder, chronic F43.12 Amphetamine abuse F15.10
[2024-06-23] MEDS: ibuprofen 600 mg Tablet PO (19:50)
[2024-06-23 20:20] VITALS: BP 144/81; PULSE 101; RESP 16; TEMP 36.3; O2SAT 95
[2024-06-23] MEDS: hyDROXYzine 25 mg Capsule 50 MG PO (20:31)
[2024-06-23] MEDS: paliperidone ER 6 mg Tablet PO (20:31)
[2024-06-24 06:00] VITALS: BP 105/68; PULSE 92; RESP 15; TEMP 36.7; O2SAT 98
[2024-06-24] MEDS: nicotine 4 mg lozenge MUCOUS MEM ×6 (07:13→20:10)
[2024-06-24 07:53] LABS: Glucose Point of Care 131 mg/dL (70-110)
[2024-06-24] MEDS: NON-FORMULARY MEDICATION 0.6 EACH SUBCONJ (08:22)
[2024-06-24] MEDS: docusate sodium 100 mg Capsule PO (08:24)
[2024-06-24] MEDS: acetaminophen 325 mg Tablet 650 MG PO (11:08)
--- NOTE | 2024-06-24 12:22 | P.NPUPN_ITS ---
Subjective NPU 2 Subjective: Patient presented today reporting that things are going okay. She continues to identify that she would like to go home sooner rather than later but was agreeable to the long-acting injectable and we had been discussing that the earliest we can give the second injection would be 4 days allowing unlikely discharge on Friday. She denies any side effects of the medication. Mental Status Exam 2 MSE Comments: This is an overweight versus obese white female in hospital scrubs who appeared older than her stated age with poor dentition and improving eye contact. No abnormal movements except for mild psychomotor retardation. Somewhat cooperative with exam in mild distress. Speech was decreased rate but mostly normal volume. Mood described as okay, affect brighter. Her thought process was more organized. Her thought content showed no evidence of homicidal or suicidal ideation. There was near resolution of any bizarre thoughts noted as well as evidence that delusions and active ideas of reference are resolving. She did not appear to be responding to internal stimuli. Attention and concentration were intact and memory was more reliable but no more formally tested. Insight and judgment were improving and impulse control appeared to be limited but improving. Vitals/I&O/Wt Last Vital Signs Temp 98.0 F 06/24/24 06:00 Pulse 92 06/24/24 06:00 Resp 15 06/24/24 06:00 BP 105/68 06/24/24 06:00 Pulse Ox 98 06/24/24 06:00 O2 Del Method Room Air 06/24/24 06:00 Data NPU 06/15/24 00:17 06/15/24 00:17 A&P Assessment and plan (1) Acute psychosis: (2) Post-traumatic stress disorder, chronic: (3) Amphetamine abuse: Plan 29-year-old female with a past history of complex PTSD admitted involuntarily with disorganized thinking and behavior with active psychosis currently currently remaining confused but agreeable to considering medications at this time. 1.? Engage patient in individual milieu and group therapy. 2.? Recommend sober living treatment at the highest level of care to which the patient is willing to commit 3.??CIWA for alcohol withdrawal 4. TO-15 minute checks? 5. Will attempt to gather collateral information, increased invega to 6mg daily. Switch Invega to nightly. Consider switching to Invega Sustenna if it appears insurance will cover tomorrow. Initiated Invega Sustenna loading dose to the deltoid 234 mg IM. Next loading dose will be given 3 days early on 06/28/2024 156 mg IM also a loading dose and so will be given to the deltoid. She should be other discharged home after that injection. 6. 21-day hold paperwork filed. 21-day hold granted 06/22/2024 PDMP PDMP Reviewed: Not Reviewed Attestations NPU 2 Medical Necessity Statement*: Inpatient hospitalization is medically necessary and the clinically appropriate intervention ?at this time.? We will monitor/initiate medications and make changes as indicated.? The patient?s likely length of stay four days. Coding Level of Care Code Acute Code for [facility] Fwd Diagnoses Acute psychosis F23 Post-traumatic stress disorder, chronic F43.12 Amphetamine abuse F15.10
[2024-06-24 14:00] VITALS: BP 138/82; PULSE 82; RESP 18; TEMP 36.6; O2SAT 97
--- NOTE | 2024-06-24 15:06 | PC.NURSE ---
NEW ORDERS RECEIVED FROM DR. TONEY TO GIVE INVEGA 234 MG IM TODAY AND THEN GIVE SECOND INJECTION OF INVEGA 156 MG IM ON FRIDAY. ORDERS RECEIVED, PLACED AND PT EDUCATED ON NEW ORDERS. VERBALIZED UNDERSTANDING
[2024-06-24] MEDS: OLANZapine 5 mg ODT PO ×2 (15:28→20:10)
[2024-06-24] MEDS: paliperidone palmitate 234 mg Syringe IM (17:01)
--- NOTE | 2024-06-24 17:01 | PC.NURSE ---
Ankush massey 234/1.5mL administered into patient's left deltoid muscle. Patient tolerated well. Lot:[id number] EXP:06/2025
[2024-06-24] MEDS: paliperidone ER 6 mg Tablet PO (20:03)
[2024-06-24] MEDS: hyDROXYzine 25 mg Capsule 50 MG PO (20:04)
[2024-06-24 20:05] VITALS: BP 108/70; PULSE 97; RESP 16; TEMP 37.1; O2SAT 97
[2024-06-25 06:00] VITALS: BP 111/70; PULSE 86; RESP 16; TEMP 37; O2SAT 97
[2024-06-25 07:46] LABS: Glucose Point of Care 103 mg/dL (70-110)
[2024-06-25] MEDS: acetaminophen 325 mg Tablet 650 MG PO (07:49)
[2024-06-25] MEDS: nicotine 4 mg lozenge MUCOUS MEM ×5 (07:49→20:12)
[2024-06-25] MEDS: docusate sodium 100 mg Capsule PO (07:49)
[2024-06-25] MEDS: NON-FORMULARY MEDICATION 0.6 EACH SUBCONJ (08:46)
--- NOTE | 2024-06-25 13:44 | P.NPUPN_ITS ---
Subjective NPU 2 Subjective: Patient presented today reporting that she is doing fine. She reports that she is starting to have greater clarity with the medication. She reported understanding that she would not be able to get her second injection until Friday but that we were likely going discharge after that. She denied any new or pressing issues and reports she is eating and sleeping well and denied any side effects to the medication. Mental Status Exam 2 MSE Comments: This is an overweight versus obese white female in hospital scrubs who appeared older than her stated age with poor dentition and improving eye contact. No abnormal movements except for mild psychomotor retardation. Somewhat cooperative with exam in mild distress. Speech was decreased rate but mostly normal volume. Mood described as okay, affect brighter. Her thought process was more organized. Her thought content showed no evidence of homicidal or suicidal ideation. There was near resolution of any bizarre thoughts noted as well as evidence that delusions and active ideas of reference are resolving. She did not appear to be responding to internal stimuli. Attention and concentration were intact and memory was more reliable but no more formally tested. Insight and judgment were improving and impulse control appeared to be limited but improving. Vitals/I&O/Wt Last Vital Signs Temp 98.6 F 06/25/24 06:00 Pulse 86 06/25/24 06:00 Resp 16 06/25/24 06:00 BP 111/70 06/25/24 06:00 Pulse Ox 97 06/25/24 06:00 O2 Del Method Room Air 06/25/24 06:00 Data NPU 06/15/24 00:17 06/15/24 00:17 A&P Assessment and plan (1) Acute psychosis: (2) Post-traumatic stress disorder, chronic: (3) Amphetamine abuse: Plan 29-year-old female with a past history of complex PTSD admitted involuntarily with disorganized thinking and behavior with active psychosis currently currently remaining confused but agreeable to considering medications at this time. 1.? Engage patient in individual milieu and group therapy. 2.? Recommend sober living treatment at the highest level of care to which the patient is willing to commit 3.??CIWA for alcohol withdrawal 4. TO-15 minute checks? 5. Will attempt to gather collateral information, increased invega to 6mg daily. Switch Invega to nightly. Consider switching to Invega Sustenna if it appears insurance will cover tomorrow. Initiated Invega Sustenna loading dose to the deltoid 234 mg IM. Next loading dose will be given 3 days early on 06/28/2024 156 mg IM also a loading dose and so will be given to the deltoid. She should be other discharged home after that injection. 6. 21-day hold paperwork filed. 21-day hold granted 06/22/2024 PDMP PDMP Reviewed: Not Reviewed Attestations NPU 2 Medical Necessity Statement*: Inpatient hospitalization is medically necessary and the clinically appropriate intervention ?at this time.? We will monitor/initiate medications and make changes as indicated.? The patient?s likely length of stay 3 days. Coding Level of Care Code Acute Code for [facility] Fwd Diagnoses Acute psychosis F23 Post-traumatic stress disorder, chronic F43.12 Amphetamine abuse F15.10
[2024-06-25 14:00] VITALS: BP 111/75; PULSE 87; RESP 16; TEMP 36.6; O2SAT 98
[2024-06-25] MEDS: hyDROXYzine 25 mg Capsule 50 MG PO (16:12)
[2024-06-25] MEDS: ibuprofen 600 mg Tablet PO (17:37)
--- NOTE | 2024-06-25 19:52 | PC.NURSE ---
PT CONTINUES TO COMPLAIN OF FREQUENT BURNING AND URINATION AFTER VOIDING. PT WAS RECENTLY TREATED FOR A UTI UPON ADMISSION. NOTIFIED DR. TONEY OF PT COMPLAINTS AND NEW ORDERS WERE RECEIVED TO COLLECT URINALYSIS WITH CULTURE IF INDICATED. PT EDUCATED ON ALL NEW ORDERS. VERBALIZED UNDERSTANDING AND SUPPORT VOICED.
[2024-06-25] MEDS: OLANZapine 5 mg ODT PO (20:12)
[2024-06-25] MEDS: paliperidone ER 6 mg Tablet PO (20:12)
[2024-06-25 20:42] LABS: Add Urine Microscopic? NO
[2024-06-25 20:43] LABS: Bilirubin Urine Negative (Negative); Blood Urine Negative (Negative); Glucose Urine UA Negative (Normal); Ketones Urine Negative (Negative); Leukocyte Esterase Urine Negative (Negative); Nitrate Urine Negative (Negative); Protein Urine Negative (Negative); Specific Gravity, Urine 1.016 (1.005-1.030); Urine Appearance Clear (CLEAR); Urine Color Yellow (Yellow); Urobilinogen Urine 0.2 mg/dL (Negative)
[2024-06-25 20:53] LABS: Charge for UA Resulting for Rev
[2024-06-25 22:00] VITALS: BP 112/79; PULSE 84; RESP 16; TEMP 36.8; O2SAT 98
[2024-06-26 06:00] VITALS: BP 106/60; PULSE 69; RESP 16; TEMP 36.8; O2SAT 100
[2024-06-26 07:13] LABS: Glucose Point of Care 110 mg/dL (70-110)
[2024-06-26] MEDS: nicotine 4 mg lozenge MUCOUS MEM ×5 (08:05→19:17)
[2024-06-26] MEDS: docusate sodium 100 mg Capsule PO (08:06)
[2024-06-26] MEDS: NON-FORMULARY MEDICATION 0.6 EACH SUBCONJ (08:06)
[2024-06-26] MEDS: OLANZapine 5 mg ODT PO (11:02)
--- NOTE | 2024-06-26 11:33 | W.PM.NPUPNS ---
Subjective NPU Subjective: Patient presented today reporting that she is feeling decent today. She reports that she is looking forward to discharge in 48 hours and is hopeful that the things that she is done here are going to really help her do better this time. She endorsed a commitment to her recovery and trying to get things back on track. She denied any side effects to the medication. Mental Status Exam MSE Comments: This is an overweight versus obese white female in hospital scrubs who appeared older than her stated age with poor dentition and improving eye contact. No abnormal movements except for mild psychomotor retardation. Somewhat cooperative with exam in mild distress. Speech was decreased rate but mostly normal volume. Mood described as okay, affect brighter. Her thought process was more organized. Her thought content showed no evidence of homicidal or suicidal ideation. There was near resolution of any bizarre thoughts noted as well as evidence that delusions and active ideas of reference are resolving. She did not appear to be responding to internal stimuli. Attention and concentration were intact and memory was more reliable but no more formally tested. Insight and judgment were improving and impulse control appeared to be limited but improving. Vitals/I&O/Wt Last Vital Signs Temp 98.3 F 06/26/24 06:00 Pulse 69 06/26/24 06:00 Resp 16 06/26/24 06:00 BP 106/60 06/26/24 06:00 Pulse Ox 100 06/26/24 06:00 O2 Del Method Room Air 06/25/24 14:00 Data NPU 06/15/24 00:17 06/15/24 00:17 A&P Assessment and plan (1) Acute psychosis: (2) Post-traumatic stress disorder, chronic: (3) Amphetamine abuse: Plan 29-year-old female with a past history of complex PTSD admitted involuntarily with disorganized thinking and behavior with active psychosis currently currently remaining confused but agreeable to considering medications at this time. 1.? Engage patient in individual milieu and group therapy. 2.? Recommend sober living treatment at the highest level of care to which the patient is willing to commit 3.??CIWA for alcohol withdrawal 4. TO-15 minute checks? 5. Will attempt to gather collateral information, increased invega to 6mg daily. Switch Invega to nightly. Consider switching to Invega Sustenna if it appears insurance will cover tomorrow. Initiated Invega Sustenna loading dose to the deltoid 234 mg IM. Next loading dose will be given 3 days early on 06/28/2024 156 mg IM also a loading dose and so will be given to the deltoid. She should be other discharged home after that injection. 6. 21-day hold paperwork filed. 21-day hold granted 06/22/2024 PDMP PDMP Reviewed: Not Reviewed Attestations NPU Medical Necessity Statement*: Inpatient hospitalization is medically necessary and the clinically appropriate intervention ?at this time.? We will monitor/initiate medications and make changes as indicated.? The patient?s likely length of stay 2 days. Coding Level of Care Code Acute Code for [facility] Fwd Diagnoses Acute psychosis F23 Post-traumatic stress disorder, chronic F43.12 Amphetamine abuse F15.10
[2024-06-26] MEDS: ibuprofen 600 mg Tablet PO (11:43)
[2024-06-26 14:00] VITALS: BP 115/62; PULSE 99; RESP 16; TEMP 37.2; O2SAT 98
[2024-06-26 20:00] VITALS: BP 111/74; PULSE 96; RESP 16; TEMP 36.6; O2SAT 98
[2024-06-26] MEDS: paliperidone ER 6 mg Tablet PO (20:24)
[2024-06-26] MEDS: hyDROXYzine 25 mg Capsule 50 MG PO (20:24)
[2024-06-26 20:37] LABS: Glucose Point of Care 147 mg/dL (70-110)
[2024-06-26 22:00] VITALS: BP 111/74; PULSE 96; RESP 16; TEMP 36.6; O2SAT 98
[2024-06-27 06:00] VITALS: BP 118/68; PULSE 95; RESP 16; TEMP 36.7; O2SAT 98
[2024-06-27] MEDS: nicotine 4 mg lozenge MUCOUS MEM ×6 (06:55→20:28)
[2024-06-27 07:17] LABS: Glucose Point of Care 117 mg/dL (70-110)
[2024-06-27] MEDS: NON-FORMULARY MEDICATION 0.6 EACH SUBCONJ (08:46)
[2024-06-27] MEDS: docusate sodium 100 mg Capsule PO (08:46)
[2024-06-27] MEDS: OLANZapine 5 mg ODT PO (10:05)
[2024-06-27 14:00] VITALS: BP 110/78; PULSE 83; RESP 16; TEMP 37.1; O2SAT 98
--- NOTE | 2024-06-27 15:25 | P.NPUPN_ITS ---
Subjective NPU 2 Subjective: Patient presented today reporting that things are going okay. She reports that she continues to be optimistic about her plans moving forward. She is committed to getting her second loading dose of Invega Sustenna tomorrow which is 3 days early but within the approved window for administration of the loading doses. We agree that as long as things continue at the current pace and trajectory that she would be discharged to home after receiving the shot tomorrow. She denied any side effects to the medication. Mental Status Exam 2 MSE Comments: This is an overweight versus obese white female in hospital scrubs who appeared older than her stated age with poor dentition and improving eye contact. No abnormal movements except for mild psychomotor retardation. Somewhat cooperative with exam in mild distress. Speech was decreased rate but mostly normal volume. Mood described as okay, affect brighter. Her thought process was more organized. Her thought content showed no evidence of homicidal or suicidal ideation. There was near resolution of any bizarre thoughts noted as well as evidence that delusions and active ideas of reference are resolving. She did not appear to be responding to internal stimuli. Attention and concentration were intact and memory was more reliable but no more formally tested. Insight and judgment were improving and impulse control appeared to be limited but improving. Vitals/I&O/Wt Last Vital Signs Temp 98.8 F 06/27/24 14:00 Pulse 83 06/27/24 14:00 Resp 16 06/27/24 14:00 BP 110/78 06/27/24 14:00 Pulse Ox 98 06/27/24 14:00 O2 Del Method Room Air 06/27/24 14:00 Weight last 48 hrs Weight 82.1 kg Data NPU 06/15/24 00:17 06/15/24 00:17 A&P Assessment and plan (1) Acute psychosis: (2) Post-traumatic stress disorder, chronic: (3) Amphetamine abuse: Plan 29-year-old female with a past history of complex PTSD admitted involuntarily with disorganized thinking and behavior with active psychosis currently currently remaining confused but agreeable to considering medications at this time. 1.? Engage patient in individual milieu and group therapy. 2.? Recommend sober living treatment at the highest level of care to which the patient is willing to commit 3.??CIWA for alcohol withdrawal 4. TO-15 minute checks? 5. Will attempt to gather collateral information, increased invega to 6mg daily. Switch Invega to nightly. Consider switching to Invega Sustenna if it appears insurance will cover tomorrow. Initiated Invega Sustenna loading dose to the deltoid 234 mg IM. Next loading dose will be given 3 days early on 06/28/2024 156 mg IM also a loading dose and so will be given to the deltoid. She should be other discharged home after that injection. 6. 21-day hold paperwork filed. 21-day hold granted 06/22/2024 PDMP PDMP Reviewed: Not Reviewed Attestations NPU 2 Medical Necessity Statement*: Inpatient hospitalization is medically necessary and the clinically appropriate intervention ?at this time.? We will monitor/initiate medications and make changes as indicated.? The patient?s likely length of stay 1 day. Coding Level of Care Code Acute Code for [facility] Fwd Diagnoses Acute psychosis F23 Post-traumatic stress disorder, chronic F43.12 Amphetamine abuse F15.10
[2024-06-27] MEDS: calcium carbonate 500 mg Chew Tablet 1000 MG PO (15:57)
[2024-06-27] MEDS: paliperidone ER 6 mg Tablet PO (20:27)
[2024-06-27] MEDS: hyDROXYzine 25 mg Capsule 50 MG PO (20:27)
[2024-06-27 22:00] VITALS: BP 107/73; PULSE 92; RESP 18; TEMP 36.3; O2SAT 97
[2024-06-28 06:00] VITALS: BP 103/67; PULSE 79; RESP 16; TEMP 36.7; O2SAT 99
[2024-06-28] MEDS: nicotine 4 mg lozenge MUCOUS MEM ×3 (07:31→12:51)
[2024-06-28 07:39] LABS: Glucose Point of Care 128 mg/dL (70-110)
[2024-06-28] MEDS: docusate sodium 100 mg Capsule PO (08:10)
[2024-06-28] MEDS: NON-FORMULARY MEDICATION 0.6 EACH SUBCONJ (08:10)
[2024-06-28] MEDS: OLANZapine 5 mg ODT PO ×2 (09:00→13:54)
[2024-06-28] MEDS: paliperidone palmitate 156 mg Syringe IM (13:06)
--- NOTE | 2024-06-28 13:08 | PC.NURSE ---
GEORGETTE SUSTENNA 156 MG GIVEN IM ORDERED BY PHYSICIAN, SHOT GIVEN IN RIGHT DELTOID. TOLERATED INJECTION WELL, WILL CONT TO MONITOR INJECTION SITE FOR ANY REDNESS, SWELLING, OR IRRITATION. LOT [id number] EXP
--- NOTE | 2024-06-28 13:56 | P.NPUDS_ITS ---
Diagnoses at Discharge Discharge Diagnosis (1) Acute psychosis: Status: Acute (2) Post-traumatic stress disorder, chronic: Status: Acute (3) Amphetamine abuse: Status: Acute Reason for Visit Reason for Visit: MHE Discharge Data Studies Completed and Pending: Completed Studies During Hospitalization Category Date Time Status CT head wo con* [id number] Stat Cat Scan 06/15/24 09:28 Completed Radiology Impressions Head CT 06/15/24 09:28 IMPRESSION: Negative head CT. Laboratory Results WBC 8.70 10^3/uL (3.2 9-11.43) 06/15/24 00:17 RBC 4.60 10^6/uL (3.8 5-5.65) 06/15/24 00:17 Hgb 13.00 g/dL (11.27 -16.99) 06/15/24 00:17 Hct 39.9 % (36-47) 06/15/24 00:17 MCV 86.7 fl (85-98) 06/15/24 00:17 MCH 28.3 pg (27-33) 06/15/24 00:17 MCHC 32.6 g/dL (30-55) 06/15/24 00:17 RDW 13.6 % (12.1-15.1 ) 06/15/24 00:17 Plt Count 325 10^3/cmm (157 -399) 06/15/24 00:17 MPV 10.0 fL (7.4-10.4 ) 06/15/24 00:17 Neut % (Auto) 72.2 % 06/15/24 00:17 Lymph % (Auto) 18.7 % 06/15/24 00:17 Young % (Auto) 6.2 % 06/15/24 00:17 Eos % (Auto) 2.3 % 06/15/24 00:17 Baso % (Auto) 0.5 % 06/15/24 00:17 Neut # (Auto) 6.28 10^3/uL (1.8 -7.7) 06/15/24 00:17 Lymph # (Auto) 1.6 10^3/uL (0.8- 4.8) 06/15/24 00:17 Young # (Auto) 0.5 10^3/uL (0.2- 0.9) 06/15/24 00:17 Eos # (Auto) 0.2 10^3/uL (0.0- 0.8) 06/15/24 00:17 Baso # (Auto) 0.0 10^3/uL (0.0- 0.1) 06/15/24 00:17 Nucleated RBC % (a uto) 0 % 06/15/24 00:17 Nucleated RBCs # 0.0 /100WBC 06/15/24 00:17 Sodium 141 mmol/L (136-1 45) 06/15/24 00:17 Potassium 3.5 mmol/L (3.5-5 .1) 06/15/24 00:17 Chloride 104 mmol/L (98-10 7) 06/15/24 00:17 Carbon Dioxide 22 mmol/L (22-29) 06/15/24 00:17 Anion Gap 18.5 (5-19) 06/15/24 00:17 BUN 8 mg/dL (6-20) 06/15/24 00:17 Creatinine 0.7 mg/dL (0.5-0. 9) 06/15/24 00:17 GFR Calculation 97.6 mL/min (90-1 30) 06/15/24 00:17 Glucose 114 mg/dL (65-115 ) 06/15/24 00:17 POC Glucose 128 mg/dL (70-110 ) H 06/28/24 07:31 Calculated Osmolal ity 291 mOsm/kg (285- 295) 06/15/24 00:17 Calcium 10.0 mg/dL (8.5-1 0.5) 06/15/24 00:17 Total Bilirubin 0.8 mg/dL (0.15-1 .2) 06/15/24 00:17 AST 26 U/L (0-32) 06/15/24 00:17 ALT 26 U/L (0-33) 06/15/24 00:17 Alkaline Phosphata se 114 U/L (35-105) H 06/15/24 00:17 Total Protein 7.4 g/dL (6.6-8.7 ) 06/15/24 00:17 Albumin 4.2 g/dL (3.5-5.2 ) 06/15/24 00:17 Globulin 3.2 g/dL (1.3-4.6 ) 06/15/24 00:17 HCG, Qual Negative (Negati ve) 06/15/24 08:06 Urine Color Yellow (Yellow) 06/25/24 20:30 Urine Appearance Clear (CLEAR) 06/25/24 20:30 Urine pH 6.0 (5-7) 06/25/24 20:30 Ur Specific Gravit y 1.016 (1.005-1.0 30) 06/25/24 20:30 Urine Protein Negative (Negati ve) 06/25/24 20:30 Urine Glucose (UA) Negative (Normal ) 06/25/24 20:30 Urine Ketones Negative (Negati ve) 06/25/24 20:30 Urine Blood Negative (Negati ve) 06/25/24 20:30 Urine Nitrate Negative (Negati ve) 06/25/24 20:30 Urine Bilirubin Negative (Negati ve) 06/25/24 20:30 Urine Urobilinogen 0.2 mg/dL (Negati ve) 06/25/24 20:30 Ur Leukocyte Viviana ase Negative (Negati ve) 06/25/24 20:30 Urine RBC 0-2 /hpf (0-2) 06/15/24 08:06 Urine WBC 11-20 /hpf (0-5) H 06/15/24 08:06 Ur Squamous Epith Cells 6-10 /hpf (0-5) 06/15/24 08:06 Amorphous Sediment Not Reportable 06/25/24 20:30 Urine Bacteria 2+ /hpf (NONE) H 06/15/24 08:06 Hyaline Casts 4.11 /lpf 06/15/24 08:06 Salicylates < 0.3 mg/dL (3-10 ) L 06/15/24 00:17 Urine Opiates Scre en Negative ng/mL (N egative) 06/15/24 08:06 Acetaminophen < 5.0 ug/mL (10-3 0) L 06/15/24 00:17 Ur Barbiturates Sc reen Negative ng/mL (N egative) 06/15/24 08:06 Ur Phencyclidine S crn Negative ng/mL (N egative) 06/15/24 08:06 Ur Amphetamines Sc reen Positive ng/mL (N egative) H 06/15/24 08:06 U Benzodiazepines Scrn Negative ng/mL (N egative) 06/15/24 08:06 Urine Cocaine Scre en Negative ng/mL (N egative) 06/15/24 08:06 U Marijuana (THC) Screen Positive ng/mL (N egative) H 06/15/24 08:06 Ethyl Alcohol < 10 mg/dL (0-10) 06/15/24 00:17 Vitals: Last Vital Signs Temp 98.0 F 06/28/24 06:00 Pulse 79 06/28/24 06:00 Resp 16 06/28/24 06:00 BP 103/67 06/28/24 06:00 Pulse Ox 99 06/28/24 06:00 O2 Del Method Room Air 06/27/24 14:00 Discharge Plan Discharge Patient Disposition: Home Condition: Stable Prescriptions: New Invega Sustenna 156 mg/mL syringe 156 mg IM Q30D 30 Days Qty: 1 2RF Rx Instructions: Next injection 07/29/2024 then as directed. olanzapine 5 mg Tablet,Disintegrating 5 mg PO DAILY PRN (Reason: Agitation/Psychosis) 30 Days Qty: 30 1RF hydroxyzine pamoate 25 mg Capsule 50 mg PO Q6H PRN (Reason: Anxiety) 30 Days Qty: 120 1RF paliperidone 6 mg Tablet Extended Release 24hr 6 mg PO BEDTIME 30 Days Qty: 30 1RF Continued albuterol sulfate [Ventolin HFA] 90 mcg/actuation HFA aerosol inhaler 2 puff INHALATION PRN PRN (Reason: asthma) Discharge Orders: Discharge Order (Routine); Ordered 06/28/24 Ordered By: Hugh Dlegado Discharge Diet: Regular Discharge Activity: Resume usual activity Patient Instructions: Opioid Safety Discharge Attestations NPU Time Spent in Discharge Care*: less than 30 min Specific Discharge Activities: Specific discharge activities: educating patient, discussing with case management manager/social workers/dc planners, documenting/other paperwork and evaluating patient/reviewing data Coding Level of Care Code Acute Code for [facility] Fwd Diagnoses Acute psychosis F23 Post-traumatic stress disorder, chronic F43.12 Amphetamine abuse F15.10
[2024-06-28 14:00] VITALS: BP 117/77; PULSE 86; RESP 16; TEMP 36.8; O2SAT 100
[2024-06-28 14:10] VITALS: BP 103/67; PULSE 79; RESP 16; TEMP 36.6; O2SAT 99
== END 2024-06-28 15:05 | disposition home or self-care (01) | DRG 885 ==
LOC: ER 06-15 07:22 → NP 06-15 11:14
PROVIDERS: Emergency Medicine; Psychiatry & Neurology Psychiatry; Admitting Provider Psychiatry & Neurology Psychiatry; Emergency Provider Family Medicine; Visit Provider Psychiatry & Neurology Psychiatry
DX: F23 Brief psychotic disorder (principal); E11.9 Type 2 diabetes mellitus without complications; F17.210 Nicotine dependence, cigarettes, uncomplicated; F15.10 Other stimulant abuse, uncomplicated; F12.90 Cannabis use, unspecified, uncomplicated; Z91.148 Patient's other noncompliance with medication regimen for other reason; E78.00 Pure hypercholesterolemia, unspecified; F43.12 Post-traumatic stress disorder, chronic; F41.1 Generalized anxiety disorder; E66.9 Obesity, unspecified; Z68.29 Body mass index [BMI] 29.0-29.9, adult
CPT/HCPCS: 36415; 36416; 70450; 80053; 80306; 80307; 81001; 81003; 81025; 82962; 85025; 87086; 96372; 97150; 97165; 99285